=== PATIENT | male | born 1990 | race African-American/Black ===

== ENCOUNTER 2017-04-10 13:02 | Emergency (ER) | payer OTHER ==
[~2017-04-10] VITALS: Ht 182.9 cm; Wt 90.7 kg
[~2017-04-10 13:02] MED LIST: NO MEDICATIONS; VISTARIL PO
[2017-04-10 13:41] LABS: URINE SOURCE CLEAN CATCH
[2017-04-10 14:00] LABS: URINE APPEARANCE CLEAR; URINE BILIRUBIN NEG (NEG); URINE BLOOD NEG (NEG); URINE COLOR YELLOW; URINE GLUCOSE NEG (NEG); URINE KETONE NEG (NEG); URINE LEUKOCYTE ESTERASE NEG (NEG); URINE NITRATE NEG (NEG); URINE PH 7.5 (5-8); URINE PROTEIN NEG (NEG); URINE SPECIFIC GRAVITY 1.005 (1.003-1.035); URINE UROBILINOGEN 0.2 MG/DL (NEG)
[2017-04-10 14:04] LABS: CULTURE INDICATED? NO
[2017-04-12 10:12] LABS: CHLAMYDIA TRACH Not Detected (Not Detected); N GONOR Not Detected (Not Detected)
== END 2017-04-10 14:20 | disposition home or self-care (01) ==
LOC: CFTX 13:02 → CED 13:02 → CFTX 13:30
PROVIDERS: Nurse Practitioner
DX: N34.2 Other urethritis (principal); F17.200 Nicotine dependence, unspecified, uncomplicated
CPT/HCPCS: 81003; 87491; 87591; 96372; 99283; J0696